=== PATIENT | male | born 1970 | race Hispanic/Latino ===

== ENCOUNTER 2021-11-16 10:00 | Observation (INO) | payer BC ==
[~2021-11-16] VITALS: Ht 172.7 cm; Wt 107.0 kg
[2021-11-16 11:30] VITALS: BP 138/81
[2021-11-16 12:10] LABS: BASOPHILS % (AUTO) 1.1 % (0.0-5.0); EOSINOPHILS % (AUTO) 1.9 % (0.0-8.0); HEMATOCRIT 47.3 % (42-54); LYMPHOCYTES % (AUTO) 38.6 % (21.0-51.0); MEAN CORPUSCULAR HGB CONC 32.8 g/dL (32.0-36.0); MEAN CORPUSCULAR VOLUME 91.7 fL (79-99); NEUTROPHILS % (AUTO) 49.2 % (40.0-77.0); PLATELET COUNT (AUTO) 228 K/uL (130-400); RED BLOOD CELL COUNT(AUTO) 5.16 MIL/uL (4.50-6.20); RED CELL DISTRIBUTION WIDTH 11.9 % (11.0-15.5); WHITE BLOOD COUNT (AUTO) 6.4 K/uL (4.8-10.8)
[2021-11-16 12:23] LABS: CREATININE 0.8 mg/dL (0.5-1.5); POTASSIUM 4.1 mmol/L (3.5-5.1)
[2021-11-17] MEDS ORDERED: ROSU10TA28 PO (09:31)
[2021-11-17] MEDS ORDERED: TRAM50TA4 PO (09:31)
[2021-11-18] VITALS (24 sets, daily range): BP systolic 106–142; BP diastolic 50–88
[2021-11-18] MEDS ORDERED: CEFAZOLIN SODIUM 1 GM VIAL ONE ×2 (06:25→06:51)
[2021-11-18] MEDS ORDERED: LACTATED RINGERS 1000ML 1,000 ML IV ONE (06:25)
[2021-11-18] MEDS ORDERED: MORPHINE PF 100MG/10ML AMP IV ONE (06:52)
[2021-11-18] MEDS ORDERED: BUPIVACAINE/EPI/PF 0.5% 30ML VIAL IJ ONE (06:52)
[2021-11-18] MEDS ORDERED: THROMBIN-JMI 20000 UNIT KIT TP ONE (06:53)
[2021-11-18] MEDS ORDERED: SUCCINYLCHOLINE CHLORIDE 20 MG/ML 10 ML VIAL ONE (06:58)
[2021-11-18] MEDS ORDERED: MIDAZOLAM HCL 1 MG/ML 2ML VIAL ONE (06:59)
[2021-11-18] MEDS ORDERED: PROPOFOL 10 MG/ML 20ML VIAL IV ONE ×2 (06:59→07:23)
[2021-11-18] MEDS ORDERED: DEXAMETHASONE SOD PHOSPHATE 10MG/ML 1ML VIAL ONE (06:59)
[2021-11-18] MEDS ORDERED: NEOSTIGMINE 5MG/5ML SYR IV ONE (06:59)
[2021-11-18] MEDS ORDERED: LIDOCAINE PF 100MG/5ML (2%) SYRINGE 5ML ONE (06:59)
[2021-11-18] MEDS ORDERED: GLYCOPYRROLATE 1 MG/5 ML SYRINGE ONE (06:59)
[2021-11-18] MEDS ORDERED: FENTANYL CITRATE PF 50 MCG/1 ML 2ML VIAL ONE ×3 (07:00→09:33)
[2021-11-18] MEDS ORDERED: ONDANSETRON 4MG INJ ONE (07:00)
[2021-11-18] MEDS ORDERED: ROCURONIUM 10MG/1ML SYR 10 MG/ML ML ONE (07:00)
[2021-11-18] MEDS ORDERED: CEFAZOLIN SODIUM 1 GM VIAL IVP ONE (08:00)
[2021-11-18] MEDS ORDERED: LACTATED RINGERS 1000ML 1,000 ML IV SCH (11:30)
[2021-11-18] MEDS ORDERED: PROMETHAZINE HCL 25 MG/ML 1ML AMPULE IM PRN (11:30)
[2021-11-18] MEDS ORDERED: MORPHINE 2 MG SYG IVP PRN (11:30)
[2021-11-18] MEDS ORDERED: TRAMADOL HCL 50 MG TABLET PO PRN (11:30)
[2021-11-18] MEDS ORDERED: HYDROCODONE/ACETAMINOPHEN 5/325 MG TAB PO PRN (11:30)
[2021-11-18] MEDS ORDERED: 0.9%NACL 10ML VIAL IVP PRN (11:30)
[2021-11-18] MEDS: DEXAMETHASONE SOD PHOSPHATE 4 MG/ML 1ML VIAL IVP SCH ×3 (11:30→23:17)
[2021-11-18] MEDS: CEFAZOLIN SODIUM 1 GM VIAL IVP SCH ×2 (11:30→20:52)
[2021-11-18] MEDS ORDERED: MEPERIDINE-PF 25 MG/ML SYG ONE (11:47)
[2021-11-18] MEDS ORDERED: ATORVASTATIN 20 MG TABLET PO SCH (21:00)
[2021-11-19] MEDS: DEXAMETHASONE SOD PHOSPHATE 4 MG/ML 1ML VIAL IVP SCH (04:27)
[2021-11-19 04:37] VITALS: BP 117/74
[2021-11-19 08:08] VITALS: BP 135/80
== END 2021-11-19 11:35 | disposition home or self-care (01) ==
LOC: DAHIP 11-18 05:56 → 4AH 11-18 12:11
PROVIDERS: ADMIT Neurological Surgery; ATTEND Neurological Surgery
DX: M48.062 Spinal stenosis, lumbar region with neurogenic claudication (principal); Z20.822 Contact with and (suspected) exposure to COVID-19; E78.5 Hyperlipidemia, unspecified; M48.00 Spinal stenosis, site unspecified; M51.27 Other intervertebral disc displacement, lumbosacral region; Z79.899 Other long term (current) drug therapy; Z98.890 Other specified postprocedural states
CPT/HCPCS: 36415; 63047; 63048 ×2; 71045; 72020; 80048; 85025; 87635; 93005; 96374; 96376 ×2; A4213; A4215; A4221; A4222; A4223; A4344; A4510; A4600; A4649 ×3; A4663; A6260; G0378 ×24; J0330; J0690 ×3; J1100 ×4; J2001; J2175; J2250; J2274; J2405; J2704 ×2; J2710; J3010 ×3; J3490 ×2; J7120 ×2